=== PATIENT | female | born 1975 | race Caucasian/White ===

== ENCOUNTER 2019-11-11 12:37 | Emergency (ER) | payer OTHER ==
--- NOTE | 2019-11-11 13:08 | ED.PDOC ---
History of Present Illness - General Time Seen by Provider: 11/11/19 12:42 - History of Present Illness Initial Comments: Patient presents for bilateral ankle pain after falling off her porch. She states that her ankles turned inwards. She denies hitting her head or LOC. She has no new numbness or weakness. She has had difficulty with ambulation secondary to pain. Denies any pain in the rest of the extremities. Does note previous hx of ankle sprains and fractures. Allergies/Adverse Reactions: Allergies Acetaminophen [From Percocet] Allergy (Verified 11/11/19 13:39) Clarithromycin [From Biaxin] Allergy (Verified 11/11/19 13:39) Hydrocodone Allergy (Verified 11/11/19 13:39) Oxycodone [From Percocet] Allergy (Verified 11/11/19 13:39) Home Medications: Ambulatory Orders Meloxicam [Mobic] 15 mg PO DAILY #20 tab 11/11/19 Review of Systems - Review of Systems Musculoskeletal: States: joint pain, muscle pain Neurological: Denies: numbness, weakness Hematologic/Lymphatic: Denies: blood clots Physical Exam - Physical Exam General Appearance: Alert, Other - Appears uncomfortable. Grimacing Head Injury: no evidence of injury Peripheral Pulses: dorsalis pedis,right: 2+, dorsalis pedis,left: 2+, posterior tibialis,right: 2+, posterior tibialis,left: 2+ Cardiovascular/Respiratory: regular rate, rhythm, no respiratory distress Neurologic: alert, oriented x 3, other - sensation intact in BLE. 5/5 strength in BLE Progress - Progress Progress: 11/11/19 15:50 Patient Presents for evaluation of ankle pain bilaterally after inversion injury. She was neurovascularly intact. She had abrasion to right forearm, which she was updated on tetanus. Distal pulses intact. XR of the left ankle, right ankle, and left foot were obtained. These were not significant for acute fracture or dislocation. Chronic changes were noted. Patient was given crutches. Discussed re-imaging if persistently painful. Will prescribe mobic for pain. - Results/Orders Results/Orders: Reporting MD: Дмитрий Fitzpatrick Building Coordinator date: Dictation date: Study: Six views of the left foot and left ankle. Indication: fall Comparison: None. Impression: Soft tissue swelling about the ankle. Moderate tibiotalar joint effusion. Moderate plantar calcaneal heel spurring. No acute fracture of the left foot or ankle. Remote left fifth metatarsal shaft fracture which is healed. Millimetric well-corticated ossification dorsal to the talar head, likely sequela of a remote dorsal talonavicular capsular injury. Electronically signed by: Дмитрий Fitzpatrick MD 11/11/2019 1:36 PM [facility] Reporting MD: Дмитрий Fitzpatrick Building Coordinator date: Dictation date: Study: Three views of the Right Ankle. Indication: fall Comparison: None. Impression: Soft tissue swelling about the ankle. Millimetric ossification inferior to the lateral malleolus appears well-corticated and likely reflects sequela of a remote avulsive injury. MRI could better evaluate as clinically indicated. Moderate tibiotalar joint effusion. No acute displaced fracture. Electronically signed by: Дмитрий Fitzpatrick MD 11/11/2019 1:37 PM [facility] - [id number] Reporting MD: Дмитрий Fitzpatrick Building Coordinator date: Dictation date: Study: Six views of the left foot and left ankle. Indication: fall Comparison: None. Impression: Soft tissue swelling about the ankle. Moderate tibiotalar joint effusion. Moderate plantar calcaneal heel spurring. No acute fracture of the left foot or ankle. Remote left fifth metatarsal shaft fracture which is healed. Millimetric well-corticated ossification dorsal to the talar head, likely sequela of a remote dorsal talonavicular capsular injury. Electronically signed by: Дмитрий Fitzpatrick MD 11/11/2019 1:36 PM [facility] Departure - Departure Clinical Impression: Ankle sprain Time of Disposition: 13:50 Disposition: Discharge to Home or Self Care Condition: Good Departure Forms: ED Discharge - Pt. Copy, Patient Portal Self Enrollment Instructions: Ankle Sprain Referrals: Sherin Trejo FNP [Primary Care Provider] - 1-2 Weeks Prescriptions: Meloxicam [Mobic] 15 mg PO DAILY #20 tab Home Medications: Ambulatory Orders Meloxicam [Mobic] 15 mg PO DAILY #20 tab 11/11/19 Comments: [facility]ettles #[id number]
--- NOTE | 2019-11-11 13:38 | RAD ---
Study: Six views of the left foot and left ankle. Indication: fall Comparison: None. Impression: Soft tissue swelling about the ankle. Moderate tibiotalar joint effusion. Moderate plantar calcaneal heel spurring. No acute fracture of the left foot or ankle. Remote left fifth metatarsal shaft fracture which is healed. Millimetric well-corticated ossification dorsal to the talar head, likely sequela of a remote dorsal talonavicular capsular injury. Electronically signed by: Дмитрий Fitzpatrick MD 11/11/2019 1:[address] [facility]
--- NOTE | 2019-11-11 13:38 | RAD ---
Study: Six views of the left foot and left ankle. Indication: fall Comparison: None. Impression: Soft tissue swelling about the ankle. Moderate tibiotalar joint effusion. Moderate plantar calcaneal heel spurring. No acute fracture of the left foot or ankle. Remote left fifth metatarsal shaft fracture which is healed. Millimetric well-corticated ossification dorsal to the talar head, likely sequela of a remote dorsal talonavicular capsular injury. Electronically signed by: Дмитрий Fitzpatrick MD 11/11/2019 1:36 PM [facility]
--- NOTE | 2019-11-11 13:39 | RAD ---
Study: Three views of the Right Ankle. Indication: fall Comparison: None. Impression: Soft tissue swelling about the ankle. Millimetric ossification inferior to the lateral malleolus appears well-corticated and likely reflects sequela of a remote avulsive injury. MRI could better evaluate as clinically indicated. Moderate tibiotalar joint effusion. No acute displaced fracture. Electronically signed by: Дмитрий Fitzpatrick MD 11/11/2019 1:37 PM [employer]
[2019-11-11 13:46] VITALS: TEMP 96.9
[2019-11-11] MEDS: TETANUS,DIPHTHERIA,PERTUSSIS 1 EA SYG IM ONE (13:49)
[2019-11-11 14:59] VITALS: BP 132/86; O2SAT 98
== END 2019-11-11 14:15 | disposition home or self-care (01) ==
LOC: ER 12:37
DX: S93.402A Sprain of unspecified ligament of left ankle, initial encounter (principal); S50.811A Abrasion of right forearm, initial encounter; M25.571 Pain in right ankle and joints of right foot; Z88.6 Allergy status to analgesic agent; Z88.1 Allergy status to other antibiotic agents; Z88.5 Allergy status to narcotic agent; W17.89XA Other fall from one level to another, initial encounter; Y92.008 Other place in unspecified non-institutional (private) residence as the place of occurrence of the external cause